=== PATIENT | male | born 1960 | race Caucasian/White ===

== ENCOUNTER 2020-03-20 17:43 | Observation (INO) | payer SELFPAY ==
[~2020-03-20] VITALS: Ht 172.7 cm; Wt 71.0 kg
--- NOTE | 2020-03-20 17:58 | NUR ---
PT TO ROOM FOR BEDSIDE TRIAGE IN NO DISTRESS
--- NOTE | 2020-03-20 18:20 | NUR ---
IV STARTED AND LABS DRAWN ORDERED. ALL MONITORS ASSESSED. UPDATED ON POC
[2020-03-20 18:21] LABS: IMMATURE GRANULOCYTES 0.1 % (0.0-5.0); MEAN CELL VOLUME 100.4 fL CALC (80.0-100.0); MEAN CORPUSCULAR HGB 34.4 pG CALC (26.0-32.0); MEAN CORPUSCULAR HGB CONC 34.2 g/dL CAL (32.0-36.0); NEUT# 5.84 thou/uL (1.82-7.42); RED BLOOD COUNT 4.89 mill/uL (4.70-6.10); RED CELL DISTRI WIDTH 12.2 % (11.5-15.5)
[2020-03-20 18:23] LABS: HEMATOCRIT 49.1 % (39.0-50.0); HEMOGLOBIN 16.8 g/dl (14.0-18.0)
[2020-03-20 18:35] LABS: ALKALINE PHOSPHATASE 73 u/l (38-126); ANION GAP 10 (6-22 (CALC)); BUN 19 mg/dL (8-23); BUN/CREATININE RATIO 23 (12-20 (CALC)); CARBON DIOXIDE 27 mmol/l (22-30); CHLORIDE 104 mmol/l (95-108); CREATININE 0.8 mg/dL (0.7-1.3); GFR > 60 ML/MIN (>=60 (CALC)); GFR FOR AFR.AMER. > 60 ML/MIN (>=60 (CALC)); POTASSIUM 3.4 mmol/l (3.5-5.1); SGOT/AST 26 u/l (19-48); SODIUM 138 mmol/l (137-146); TOTAL PROTEIN 7.7 g/dL (6.3-8.2)
[2020-03-20 18:44] LABS: BILIRUBIN, TOTAL 0.4 mg/dL (0.0-1.4)
--- NOTE | 2020-03-20 18:59 | NUR ---
RESTING COMFORTABLY AWAITING TEST RESULTS.
--- NOTE | 2020-03-20 19:28 | NUR ---
REMAINS COMFORTABLE NAD
--- NOTE | 2020-03-20 19:45 | NUR ---
REMAINS COMFORTABLE. NAD. AWAITING TEST RESULTS
--- NOTE | 2020-03-20 21:20 | NUR ---
Admission Note Report Given to: WARREN OROSCO Transported by: X Wheelchair Stretcher Transported with: X Nurse Transporter X Patent IV O2 X Test Department Helper Location: ICU X [facility]
--- NOTE | 2020-03-20 21:25 | NUR ---
RECEIVED REPORT FROM NURSE DANIELS PATIENT TRANSPORTED VIA WHEELCHAIR, BREATHING EVEN UNLABORED, ORIENTED TO ROOM AND CALL LIGHT SYSTEM, CALL LIGHT AT REACH.
--- NOTE | 2020-03-20 21:57 | NUR ---
NOTEIFIED DR. MCGUIRE ABOUT BP 174/88, WITH ORDERS MADE.
--- NOTE | 2020-03-20 22:30 | NUR ---
PATIENT ALERT ORIENTED ABLE TO MAKE NEEDS KNONW, WITH SALINE LOCK ON LFA G20 PATENT FLUSHES WELL, DENIES PAIN AT THIS TIME, REMAINS ON TELE LBM 03/20, CALL LIGHT AT REACH.
[2020-03-20 23:47] VITALS: BP 107/58
--- NOTE | 2020-03-21 00:56 | NUR ---
PATIENT RESTING IN BED EYES CLOSED, BREATHING EVEN AND UNLABORED, CALL LIGHT AT REACH.
--- NOTE | 2020-03-21 04:00 | NUR ---
PATIENT APPEARS TO BE SLEEPING WITH EYES CLOSED, NO DISCOMFORTS NOTED, BREATHING EVEN AND UNLABORED CALL LIGHT AT REACH.
[2020-03-21 04:10] VITALS: BP 111/62
--- NOTE | 2020-03-21 07:10 | NUR ---
REPORT RECEIVED FROM WARREN OROSCO. PT RESTING IN BED SEMI FOWLERS; ALERT AND ORIENTED. C/O MILD 3/10 CONSTANT DULL LEFT SIDED CHEST PAIN; REPORTS THAT IT HAS IMPROVED SINCE FRIDAY, BUT STILL IS THERE. ALSO C/O MILD SOB; RESPIRATIONS EVEN AND UNLABORED ON ROOM AIR WITH NO SIGNS OF SOB; SPO2 98%. TELE ON. IV SITE APPEARS HEALTHY AND FLUSHES. PLAN OF CARE REVIEWED. PT ENCOURAGED TO VERBALIZE CONCERNS. STATES UNDERSTANDING. SAFETY MEASURES IN PLACE. CALL LIGHT WITHIN REACH.
[2020-03-21 07:11] LABS: CHOLESTEROL HDL RATIO 2.5 (<4.4 (CALC)); MAGNESIUM 1.6 mg/dL (1.6-2.3)
[2020-03-21 07:45] VITALS: BP 123/61
[2020-03-21] MEDS ORDERED: AMLODIPINE BESYL5 MG PO (11:06)
--- NOTE | 2020-03-21 11:40 | NUR ---
DR. MCGUIRE AT BEDSIDE FOR EVAL.
--- NOTE | 2020-03-21 11:45 | NUR ---
IV site discontinued, cath intact. No edema , no redness, voices no discomfort.
--- NOTE | 2020-03-21 11:49 | NUR ---
Discharge instructions given. Patient verbalizes understanding of same. Discharged in stable condition via Ambulatory to Home. All belongings sent with pt.
== END 2020-03-21 11:47 | disposition home or self-care (01) | DRG 313 ==
LOC: ED 17:43 → ED-I 20:20 → ED 20:33 → ED-I 20:34 → MS2 20:45
PROVIDERS: Family Medicine; ADMIT Internal Medicine; ATTEND Internal Medicine
DX: R07.9 Chest pain, unspecified (principal); R20.0 Anesthesia of skin; R06.02 Shortness of breath; I10 Essential (primary) hypertension; R91.8 Other nonspecific abnormal finding of lung field; J92.9 Pleural plaque without asbestos; F17.210 Nicotine dependence, cigarettes, uncomplicated; Z20.828 Contact with and (suspected) exposure to other viral communicable diseases
CPT/HCPCS: G0378; Q9967

== ENCOUNTER 2022-10-28 10:08 | Day surgery (SDC) | payer MEDICARE, MEDICAID ==
[~2022-10-28] VITALS: Ht 172.7 cm; Wt 55.8 kg
[~2022-10-28 10:08] MED LIST: AMLODIPINE BESYL5 MG PO; ASPIRIN81 MG PO; LOSARTAN POTASS50 MG PO; PERCOCET 5/325M1 TAB PO; XANAX0.25 MG PO
[2022-10-28 14:47] VITALS: BP 155/86
== END 2022-10-28 14:25 | disposition home or self-care (01) ==
LOC: ENDO 10:08 → ORM 11:30 → ENDO 11:30
PROVIDERS: ATTEND Internal Medicine Gastroenterology
PROC: 0DBP8ZX Excision of Rectum, Via Natural or Artificial Opening Endoscopic, Diagnostic (ICD-10-PCS; principal; 2022-10-28)
PROC: 0DB78ZX Excision of Stomach, Pylorus, Via Natural or Artificial Opening Endoscopic, Diagnostic (ICD-10-PCS; 2022-10-28)
DX: Z12.11 Encounter for screening for malignant neoplasm of colon (principal); K62.1 Rectal polyp; K64.8 Other hemorrhoids; K29.50 Unspecified chronic gastritis without bleeding; F17.200 Nicotine dependence, unspecified, uncomplicated

== ENCOUNTER 2023-06-11 12:46 | Emergency (ER) | payer MEDICARE, MEDICAID ==
[~2023-06-11] VITALS: Ht 172.7 cm; Wt 59.0 kg
[2023-06-11 13:00] VITALS: BP 184/94
[2023-06-11] MEDS ORDERED: TRELEGY ELLIPTA1 AER SC (13:13)
[2023-06-11 13:16] VITALS: BP 138/89
[2023-06-11 13:30] VITALS: BP 155/95
[2023-06-11] MEDS ORDERED: PREDNISONE20 MG PO (14:04)
[2023-06-11] MEDS ORDERED: ZPAK PO (14:04)
[2023-06-11] MEDS ORDERED: PROAIR HFA IN (14:04)
[2023-06-11 15:59] VITALS: BP 138/89
== END 2023-06-11 16:04 | disposition home or self-care (01) ==
LOC: ED 12:46
DX: J44.1 Chronic obstructive pulmonary disease with (acute) exacerbation (principal); I10 Essential (primary) hypertension; E11.9 Type 2 diabetes mellitus without complications; F17.200 Nicotine dependence, unspecified, uncomplicated; Z20.822 Contact with and (suspected) exposure to COVID-19